=== PATIENT | male | born 1945 | race Caucasian/White ===

== ENCOUNTER 2016-03-08 16:25 | Emergency (ER) | payer MEDICARE ==
[~2016-03-08] VITALS: Wt 88.5 kg
[~2016-03-08 16:25] MED LIST: COUMADIN7.5 MG PO; Coumadin5 MG PO; DARVOCET N 1001 TAB PO; MULTIPLE VITAMI1 CAP PO; PEPCID40 MG PO; PREVACID30 MG PO; SIMVASTATIN20 MG PO; SYNTHROID,LEV150 MCG PO; VITAMIN D-32000 UNI1 PO; ZANTAC150 MG PO
[2016-03-08 17:15] LABS: BASO % 0.4 % (0.0-1.0); EOS # 0.1 10*3/uL (0.0-0.4); EOS % 1.3 % (1.0-4.0); HEMATOCRIT 41.2 % (42.0-52.0); HEMOGLOBIN 14.2 g/dl (14.0-18.0); LYMPH # 0.7 10*3/uL (1.3-4.4); LYMPH % 15.8 % (27.0-41.0); MEAN CELL VOLUME 98.8 fl (80.0-94.0); MEAN CORPUSCULAR HGB 34.1 pg (27.0-31.0); MEAN CORPUSCULAR HGB CONC 34.5 g/dl (33.0-37.0); MEAN PLATELET VOLUME 9.6 fl (9.6-12.3); MONO # 0.6 10*3/uL (0.1-1.0); NEUT # 3.2 10*3/uL (2.3-7.9); NEUT % 69.3 % (47.0-73.0); PLATELET COUNT AUTOMATED 130 10*3/uL (130-400); RED BLOOD COUNT 4.17 10*6/uL (4.50-5.90); RED CELL DISTRI WIDTH 13.9 % (0-14.5); WHITE BLOOD COUNT 4.7 10*3/uL (4.8-10.8)
[2016-03-08 17:24] LABS: INTERNATIONAL NORM RATIO 1.9 (2.0-3.5); PROTHROMBIN TIME 20.4 SECONDS (9.0-12.4)
== END 2016-03-08 17:49 | disposition home or self-care (01) ==
LOC: ED 16:25
PROVIDERS: Physician Assistant
DX: D68.51 Activated protein C resistance (principal); Z79.01 Long term (current) use of anticoagulants; Z88.8 Allergy status to other drugs, medicaments and biological substances; Z90.49 Acquired absence of other specified parts of digestive tract

== ENCOUNTER → 2022-02-11 | Outpatient (CLI) | payer MEDICARE ==
[~2022-02-11] MED LIST changes: +COLACE100 MG PO; +Coumadin10 MG PO; +PREMIERPRO RX ME1 GM IV; +PREVACID15 MG PO; +PROBIOTIC250 MG PO; +SYNTHROID,LEV125 MCG PO; +VANC1PIG IV
== END ==
LOC: WOUNDCARE 00:40
PROVIDERS: ATTEND Nurse Practitioner Family
DX: Z53.21 Procedure and treatment not carried out due to patient leaving prior to being seen by health care provider (principal)

== ENCOUNTER → 2022-03-16 | Outpatient (CLI) | payer MEDICARE ==
[2022-03-16] VITALS (7 sets, daily range): BP systolic 107–130; BP diastolic 52–63
[~2022-03-16] MED LIST changes: +FONDAPARINUX SQ; +LIPITOR10 MG PO; +OMEPRAZOLE MAGN20 MG PO
== END | disposition home or self-care (01) ==
LOC: TRNFUSION 01:09
PROVIDERS: ATTEND Internal Medicine
DX: R79.1 Abnormal coagulation profile (principal); D64.9 Anemia, unspecified

== ENCOUNTER 2022-07-04 19:51 | Emergency (ER) | payer MEDICARE ==
[~2022-07-04] VITALS: Ht 167.6 cm; Wt 52.2 kg
[~2022-07-04 19:51] MED LIST changes: +CIPRO500 MG PO; +ELIQUIS2.5 M1 PO; +ELIQUIS5 M1 PO; +LIPITOR20 MG PO; +NYST SUSP PO; +PROTONIX40 MG PO
[2022-07-04 20:33] LABS: MEAN CELL VOLUME 92.1 fl (80.0-94.0); MEAN CORPUSCULAR HGB 30.4 pg (27.0-31.0); PLATELET COUNT AUTOMATED 175 10*3/uL (130-400); RED BLOOD COUNT 1.91 10*6/uL (4.50-5.90); RED CELL DISTRI WIDTH 13.2 % (0-14.5); WHITE BLOOD COUNT 7.9 10*3/uL (4.8-10.8)
[2022-07-04 20:44] LABS: HEMATOCRIT 17.6 % (42.0-52.0); MANUAL DIFF REFLEX YES
[2022-07-04 20:48] LABS: ACT PARTIAL THROMBO TIME 28.3 SECONDS (20.0-32.1); INTERNATIONAL NORM RATIO 1.1 (2.0-3.5)
[2022-07-04 20:59] LABS: ALKALINE PHOSPHATASE 492 U/L (46-116); BUN 39 mg/dl (9-23); CHLORIDE 109 mmol/L (98-107); POTASSIUM 4.5 mmol/L (3.4-5.1); SGPT/ALT 156 U/L (10-49); TOTAL PROTEIN 5.5 gm/dL (6.0-8.0)
[2022-07-04 21:09] LABS: BASOPHILS 1 % (0-1); PLATELET SUFFICIENCY NORMAL (NORMAL); TOTAL CELLS COUNTED 100 #CELLS
[2022-07-04 22:40] VITALS: BP 107/42
[2022-07-04 22:55] VITALS: BP 93/48
[2022-07-04 23:10] VITALS: BP 94/48
[2022-07-04 23:25] VITALS: BP 103/53
[2022-07-04 23:40] VITALS: BP 107/54
[2022-07-05] VITALS (7 sets, daily range): BP systolic 90–111; BP diastolic 42–57
[2022-07-05 05:31] LABS: INTERNATIONAL NORM RATIO 1.1 (2.0-3.5)
[2022-07-05 05:58] LABS: BASO % 0.4 % (0.0-1.0); EOS # 0.1 10*3/uL (0.0-0.4); EOS % 1.6 % (1.0-4.0); HEMATOCRIT 25.8 % (42.0-52.0); LYMPH # 0.8 10*3/uL (1.3-4.4); LYMPH % 11.1 % (27.0-41.0); MEAN CELL VOLUME 89.6 fl (80.0-94.0); MEAN CORPUSCULAR HGB 30.6 pg (27.0-31.0); MEAN CORPUSCULAR HGB CONC 34.1 g/dl (33.0-37.0); MEAN PLATELET VOLUME 9.5 fl (9.6-12.3); MONO # 0.8 10*3/uL (0.1-1.0); MONO % 10.4 % (3.0-9.0); NEUT # 5.6 10*3/uL (2.3-7.9); NEUT % 74.4 % (47.0-73.0); PLATELET COUNT AUTOMATED 178 10*3/uL (130-400); RED BLOOD COUNT 2.88 10*6/uL (4.50-5.90); RED CELL DISTRI WIDTH 13.7 % (0-14.5); WHITE BLOOD COUNT 7.6 10*3/uL (4.8-10.8)
== END 2022-07-05 07:39 | disposition home or self-care (01) ==
LOC: ED 19:51
PROVIDERS: Emergency Medicine
DX: D64.9 Anemia, unspecified (principal); R73.9 Hyperglycemia, unspecified; E87.8 Other disorders of electrolyte and fluid balance, not elsewhere classified; N18.9 Chronic kidney disease, unspecified; Z86.718 Personal history of other venous thrombosis and embolism; E78.5 Hyperlipidemia, unspecified; E78.00 Pure hypercholesterolemia, unspecified; Z90.49 Acquired absence of other specified parts of digestive tract; Z88.8 Allergy status to other drugs, medicaments and biological substances; Z88.6 Allergy status to analgesic agent; Z98.890 Other specified postprocedural states

== ENCOUNTER 2022-07-23 12:58 | Emergency (ER) | payer MEDICARE ==
[~2022-07-23] VITALS: Wt 59.0 kg
[2022-07-23] VITALS (12 sets, daily range): BP systolic 104–125; BP diastolic 54–64
[2022-07-23 13:40] LABS: MEAN CELL VOLUME 92.6 fl (80.0-94.0); MEAN CORPUSCULAR HGB 29.5 pg (27.0-31.0); MEAN CORPUSCULAR HGB CONC 31.8 g/dl (33.0-37.0); MEAN PLATELET VOLUME 8.9 fl (9.6-12.3); PLATELET COUNT AUTOMATED 188 10*3/uL (130-400); RED BLOOD COUNT 2.17 10*6/uL (4.50-5.90); RED CELL DISTRI WIDTH 13.4 % (0-14.5); WHITE BLOOD COUNT 8.2 10*3/uL (4.8-10.8)
[2022-07-23 13:41] LABS: MANUAL DIFF REFLEX YES
[2022-07-23 13:44] LABS: HEMATOCRIT 20.1 % (42.0-52.0)
[2022-07-23 13:50] LABS: ACT PARTIAL THROMBO TIME 29.9 SECONDS (20.0-32.1); INTERNATIONAL NORM RATIO 1.1 (2.0-3.5)
[2022-07-23 13:58] LABS: BASOPHILS 1 % (0-1); BURR CELLS FEW; OVALOCYTES FEW; PLATELET SUFFICIENCY NORMAL (NORMAL); POLYCHROMASIA SLIGHT; ROULEAUX SLIGHT; TOTAL CELLS COUNTED 100 #CELLS; TOXIC GRANULATION SLIGHT
[2022-07-23 14:03] LABS: ALKALINE PHOSPHATASE 509 U/L (46-116); BUN 38 mg/dl (9-23); CHLORIDE 109 mmol/L (98-107); POTASSIUM 4.3 mmol/L (3.4-5.1); SGPT/ALT 195 U/L (10-49); TOTAL PROTEIN 6.1 gm/dL (6.0-8.0)
== END 2022-07-23 21:36 | disposition home or self-care (01) ==
LOC: ED 12:58
PROVIDERS: Emergency Medicine
DX: D64.9 Anemia, unspecified (principal); E78.00 Pure hypercholesterolemia, unspecified; E03.9 Hypothyroidism, unspecified; Z88.8 Allergy status to other drugs, medicaments and biological substances; Z90.49 Acquired absence of other specified parts of digestive tract; Z98.890 Other specified postprocedural states

== ENCOUNTER 2022-08-13 16:07 | Emergency (ER) | payer MEDICARE ==
[~2022-08-13] VITALS: Wt 62.1 kg
[2022-08-13] VITALS (10 sets, daily range): BP systolic 108–141; BP diastolic 52–69
[2022-08-13 16:49] LABS: BILIRUBIN Negative (Negative); BLOOD Trace-Intact (Negative); CLARITY Clear (Clear); COLOR Yellow (Yellow); GLUCOSE Negative (Negative); KETONE Negative (Negative); LEUKO ESTERASE 2+ (Negative); NITRITE Positive (Negative); PH 5.5 (4.5-8.0); SPECIFIC GRAVITY 1.015 (1.001-1.030); UROBILINOGEN 0.2 E.U./dl (0.0-1.0)
[2022-08-13 16:57] LABS: MEAN CELL VOLUME 94.2 fl (80.0-94.0); MEAN CORPUSCULAR HGB 30.3 pg (27.0-31.0); MEAN CORPUSCULAR HGB CONC 32.1 g/dl (33.0-37.0); MEAN PLATELET VOLUME 9.9 fl (9.6-12.3); PLATELET COUNT AUTOMATED 129 10*3/uL (130-400); RED BLOOD COUNT 2.08 10*6/uL (4.50-5.90); RED CELL DISTRI WIDTH 13.6 % (0-14.5); WHITE BLOOD COUNT 9.3 10*3/uL (4.8-10.8)
[2022-08-13 17:02] LABS: HEMATOCRIT 19.6 % (42.0-52.0); MANUAL DIFF REFLEX YES
[2022-08-13 17:13] LABS: INTERNATIONAL NORM RATIO 1.2 (2.0-3.5)
[2022-08-13 17:22] LABS: ALKALINE PHOSPHATASE 384 U/L (46-116); BUN 40 mg/dl (9-23); CHLORIDE 108 mmol/L (98-107); LIPASE 51 U/L (12-53); POTASSIUM 4.2 mmol/L (3.4-5.1); SGPT/ALT 178 U/L (10-49); TOTAL PROTEIN 5.6 gm/dL (6.0-8.0)
[2022-08-13 17:27] LABS: BASOPHILS 1 % (0-1); TOTAL CELLS COUNTED 100 #CELLS
[2022-08-13 17:28] LABS: PLATELET SUFFICIENCY NORMAL (NORMAL)
[2022-08-13 17:47] LABS: BACTERIA 2+; WBC 21-30 wbc/hpf (0-5)
[2022-08-14] MEDS ORDERED: LEVOFLOXACIN750 M2 PO (01:52)
== END 2022-08-14 02:29 | disposition home or self-care (01) ==
LOC: ED 16:07
PROVIDERS: Emergency Medicine
DX: D53.9 Nutritional anemia, unspecified (principal); N17.9 Acute kidney failure, unspecified; N18.9 Chronic kidney disease, unspecified; R79.82 Elevated C-reactive protein (CRP); R79.89 Other specified abnormal findings of blood chemistry; J18.9 Pneumonia, unspecified organism; E44.0 Moderate protein-calorie malnutrition; Z68.1 Body mass index [BMI] 19.9 or less, adult; E78.00 Pure hypercholesterolemia, unspecified; N39.0 Urinary tract infection, site not specified; Z88.8 Allergy status to other drugs, medicaments and biological substances; Z90.49 Acquired absence of other specified parts of digestive tract; Z98.890 Other specified postprocedural states

== ENCOUNTER 2022-09-01 20:23 | Emergency (ER) | payer MEDICARE ==
[~2022-09-01] VITALS: Ht 185.4 cm; Wt 66.2 kg
[~2022-09-01 20:23] MED LIST changes: +LEVOFLOXACIN750 M2 PO
[2022-09-01 20:52] LABS: MEAN CELL VOLUME 92.1 fl (80.0-94.0); MEAN CORPUSCULAR HGB 28.8 pg (27.0-31.0); MEAN CORPUSCULAR HGB CONC 31.3 g/dl (33.0-37.0); MEAN PLATELET VOLUME 9.2 fl (9.6-12.3); PLATELET COUNT AUTOMATED 145 10*3/uL (130-400); RED BLOOD COUNT 2.15 10*6/uL (4.50-5.90); RED CELL DISTRI WIDTH 14.4 % (0-14.5); WHITE BLOOD COUNT 4.8 10*3/uL (4.8-10.8)
[2022-09-01 21:00] LABS: HEMATOCRIT 19.8 % (42.0-52.0); MANUAL DIFF REFLEX YES
[2022-09-01 21:05] LABS: ACT PARTIAL THROMBO TIME 27.5 SECONDS (20.0-32.1); INTERNATIONAL NORM RATIO 1.1 (2.0-3.5)
[2022-09-01 21:16] LABS: ALKALINE PHOSPHATASE 317 U/L (46-116); BUN 43 mg/dl (9-23); CHLORIDE 110 mmol/L (98-107); POTASSIUM 4.5 mmol/L (3.4-5.1); SGPT/ALT 179 U/L (10-49); TOTAL PROTEIN 5.6 gm/dL (6.0-8.0)
[2022-09-01 21:19] LABS: PLATELET SUFFICIENCY NORMAL (NORMAL); TOTAL CELLS COUNTED 100 #CELLS
[2022-09-01 21:20] LABS: SCHISTOCYTES FEW
[2022-09-02 03:05] VITALS: BP 124/52
[2022-09-02 07:40] VITALS: BP 140/71
[2022-09-02 08:10] VITALS: BP 130/48
[2022-09-02 09:03] VITALS: BP 119/46
[2022-09-02 09:28] VITALS: BP 122/64
== END 2022-09-02 12:11 | disposition left against medical advice (07) ==
LOC: ED 20:23
PROVIDERS: Internal Medicine
DX: D64.9 Anemia, unspecified (principal); Z88.8 Allergy status to other drugs, medicaments and biological substances; Z79.899 Other long term (current) drug therapy; Z90.49 Acquired absence of other specified parts of digestive tract; Z96.642 Presence of left artificial hip joint; Z90.89 Acquired absence of other organs

== ENCOUNTER 2022-09-21 16:46 | Emergency (ER) | payer MEDICARE ==
[~2022-09-21] VITALS: Ht 165.1 cm; Wt 61.4 kg
[2022-09-21] VITALS (10 sets, daily range): BP systolic 85–105; BP diastolic 35–50
[2022-09-21 17:17] LABS: MANUAL DIFF REFLEX YES; MEAN CELL VOLUME 91.9 fl (80.0-94.0); MEAN CORPUSCULAR HGB CONC 31.6 g/dl (33.0-37.0); MEAN PLATELET VOLUME 9.7 fl (9.6-12.3); PLATELET COUNT AUTOMATED 121 10*3/uL (130-400); RED BLOOD COUNT 1.86 10*6/uL (4.50-5.90); RED CELL DISTRI WIDTH 15.1 % (0-14.5); WHITE BLOOD COUNT 7.2 10*3/uL (4.8-10.8)
[2022-09-21 17:25] LABS: HEMATOCRIT 17.1 % (42.0-52.0)
[2022-09-21 17:28] LABS: ACT PARTIAL THROMBO TIME 30.4 SECONDS (20.0-32.1); INTERNATIONAL NORM RATIO 1.2 (2.0-3.5)
[2022-09-21 17:39] LABS: ALKALINE PHOSPHATASE 356 U/L (46-116); BUN 40 mg/dl (9-23); CHLORIDE 109 mmol/L (98-107); LIPASE 39 U/L (12-53); POTASSIUM 3.6 mmol/L (3.4-5.1); SGPT/ALT 237 U/L (10-49); TOTAL PROTEIN 5.3 gm/dL (6.0-8.0)
[2022-09-21 17:42] LABS: BASOPHILS 1 % (0-1); PLATELET SUFFICIENCY LOW (NORMAL); TOTAL CELLS COUNTED 100 #CELLS
[2022-09-21 17:43] LABS: POLYCHROMASIA SLIGHT
[2022-09-21 17:44] LABS: BURR CELLS FEW
[2022-09-22 04:50] VITALS: BP 98/50
[2022-09-22 05:05] VITALS: BP 115/46
[2022-09-22 05:20] VITALS: BP 114/48
[2022-09-22 05:35] VITALS: BP 112/49
[2022-09-22 06:35] VITALS: BP 100/49
[2022-09-22 07:29] VITALS: BP 117/60
== END 2022-09-22 09:01 | disposition left against medical advice (07) ==
LOC: ED 16:46
PROVIDERS: Emergency Medicine
DX: D64.9 Anemia, unspecified (principal); I95.9 Hypotension, unspecified; E78.00 Pure hypercholesterolemia, unspecified; Z88.8 Allergy status to other drugs, medicaments and biological substances; Z90.49 Acquired absence of other specified parts of digestive tract; Z98.890 Other specified postprocedural states

== ENCOUNTER 2022-10-16 11:42 | Emergency (ER) | payer MEDICARE ==
[~2022-10-16] VITALS: Wt 57.2 kg
[2022-10-16 12:12] LABS: MEAN CELL VOLUME 89.5 fl (80.0-94.0); MEAN CORPUSCULAR HGB 28.8 pg (27.0-31.0); MEAN CORPUSCULAR HGB CONC 32.2 g/dl (33.0-37.0); MEAN PLATELET VOLUME 9.6 fl (9.6-12.3); PLATELET COUNT AUTOMATED 164 10*3/uL (130-400); RED BLOOD COUNT 2.29 10*6/uL (4.50-5.90); RED CELL DISTRI WIDTH 14.3 % (0-14.5); WHITE BLOOD COUNT 16.9 10*3/uL (4.8-10.8)
[2022-10-16 12:16] LABS: HEMATOCRIT 20.5 % (42.0-52.0); MANUAL DIFF REFLEX YES
[2022-10-16 12:42] LABS: BASOPHILS 1 % (0-1); PLATELET SUFFICIENCY NORMAL (NORMAL); TOTAL CELLS COUNTED 100 #CELLS
[2022-10-16 12:43] LABS: ALKALINE PHOSPHATASE 396 U/L (46-116); BUN 47 mg/dl (9-23); CHLORIDE 116 mmol/L (98-107); SGPT/ALT 142 U/L (10-49); TOTAL PROTEIN 5.7 gm/dL (6.0-8.0)
[2022-10-16 15:45] VITALS: BP 105/40
[2022-10-16 16:00] VITALS: BP 105/40
[2022-10-16 16:15] VITALS: BP 92/38
[2022-10-16 16:30] VITALS: BP 105/58
[2022-10-16 17:00] VITALS: BP 105/47
[2022-10-16 17:30] VITALS: BP 101/49
[2022-10-16 17:45] LABS: HEMATOCRIT 23.9 % (42.0-52.0); MANUAL DIFF REFLEX YES; MEAN CELL VOLUME 89.5 fl (80.0-94.0); MEAN CORPUSCULAR HGB CONC 33.5 g/dl (33.0-37.0); MEAN PLATELET VOLUME 10.1 fl (9.6-12.3); PLATELET COUNT AUTOMATED 143 10*3/uL (130-400); RED BLOOD COUNT 2.67 10*6/uL (4.50-5.90); RED CELL DISTRI WIDTH 14.3 % (0-14.5); WHITE BLOOD COUNT 14.9 10*3/uL (4.8-10.8)
[2022-10-16 18:15] LABS: OVALOCYTES FEW; PLATELET SUFFICIENCY NORMAL (NORMAL); TOTAL CELLS COUNTED 100 #CELLS
== END 2022-10-16 18:58 | disposition home or self-care (01) ==
LOC: ED 11:42
PROVIDERS: Internal Medicine
DX: D64.9 Anemia, unspecified (principal); Z88.8 Allergy status to other drugs, medicaments and biological substances; Z90.49 Acquired absence of other specified parts of digestive tract; Z98.890 Other specified postprocedural states; E78.00 Pure hypercholesterolemia, unspecified

== ENCOUNTER 2022-10-26 11:45 | Inpatient (IN) | payer MEDICARE ==
[~2022-10-26] VITALS: Ht 177.8 cm; Wt 61.2 kg
[2022-10-26] VITALS (31 sets, daily range): BP systolic 86–133; BP diastolic 41–64
[2022-10-26 12:15] LABS: VENOUS PH 7.369 (7.37-7.45)
[2022-10-26 12:16] LABS: HEMATOCRIT 21.1 % (42.0-52.0); MEAN CELL VOLUME 95.9 fl (80.0-94.0); MEAN CORPUSCULAR HGB 27.7 pg (27.0-31.0); MEAN CORPUSCULAR HGB CONC 28.9 g/dl (33.0-37.0); MEAN PLATELET VOLUME 10.9 fl (9.6-12.3); PLATELET COUNT AUTOMATED 152 10*3/uL (130-400); RED CELL DISTRI WIDTH 15.1 % (0-14.5); WHITE BLOOD COUNT 20.6 10*3/uL (4.8-10.8)
[2022-10-26 12:17] LABS: MANUAL DIFF REFLEX YES
[2022-10-26 12:27] LABS: ACT PARTIAL THROMBO TIME 32.2 SECONDS (20.0-32.1); INTERNATIONAL NORM RATIO 1.5 (2.0-3.5)
[2022-10-26 12:36] LABS: PLATELET SUFFICIENCY NORMAL (NORMAL); POLYCHROMASIA SLIGHT; TOTAL CELLS COUNTED 100 #CELLS
[2022-10-26 12:38] LABS: ALKALINE PHOSPHATASE 569 U/L (46-116); BUN 69 mg/dl (9-23); POTASSIUM 3.6 mmol/L (3.4-5.1); SGPT/ALT 233 U/L (10-49); TOTAL PROTEIN 5.2 gm/dL (6.0-8.0)
[2022-10-26 12:47] LABS: CHLORIDE 133 mmol/L (98-107)
[2022-10-26 15:59] LABS: ABG BASE EXCESS 4.4 mmol/L (-2.0-2.0); ARTERIAL BLOOD GAS PH 7.483 (7.35-7.45); ARTERIAL BLOOD GAS PO2 458.9 (80-90)
[2022-10-26 16:36] LABS: BUN 70 mg/dl (9-23)
[2022-10-26 16:41] LABS: CHLORIDE 133 mmol/L (98-107)
[2022-10-26 18:34] LABS: BUN 65 mg/dl (9-23); POTASSIUM 3.1 mmol/L (3.4-5.1)
[2022-10-26 18:40] LABS: CHLORIDE 133 mmol/L (98-107)
[2022-10-26 21:22] LABS: ABG BASE EXCESS 0.8 mmol/L (-2.0-2.0); ARTERIAL BLOOD GAS PH 7.361 (7.35-7.45); ARTERIAL BLOOD GAS PO2 163.2 (80-90)
[2022-10-26 21:52] LABS: BILIRUBIN Negative (Negative); BLOOD Negative (Negative); CLARITY Clear (Clear); COLOR Yellow (Yellow); GLUCOSE Negative (Negative); KETONE Negative (Negative); LEUKO ESTERASE 1+ (Negative); NITRITE Negative (Negative); UROBILINOGEN 0.2 E.U./dl (0.0-1.0)
[2022-10-26 21:59] LABS: BACTERIA 1+; RBC 0-2 rbc/hpf (0-2); WBC 16-20 wbc/hpf (0-5)
[2022-10-26 22:16] LABS: BUN 64 mg/dl (9-23); POTASSIUM 3.3 mmol/L (3.4-5.1)
[2022-10-26 22:23] LABS: CHLORIDE 132 mmol/L (98-107)
[2022-10-27] VITALS (98 sets, daily range): BP systolic 78–144; BP diastolic 45–72
[2022-10-27 01:07] LABS: BUN 63 mg/dl (9-23); POTASSIUM 2.9 mmol/L (3.4-5.1)
[2022-10-27 01:10] LABS: CHLORIDE 128 mmol/L (98-107)
[2022-10-27 04:06] LABS: BUN 61 mg/dl (9-23); POTASSIUM 3.3 mmol/L (3.4-5.1)
[2022-10-27 04:11] LABS: CHLORIDE 127 mmol/L (98-107)
[2022-10-27 06:27] LABS: HEMATOCRIT 24.9 % (42.0-52.0); MEAN CELL VOLUME 92.9 fl (80.0-94.0); MEAN CORPUSCULAR HGB 29.9 pg (27.0-31.0); MEAN CORPUSCULAR HGB CONC 32.1 g/dl (33.0-37.0); MEAN PLATELET VOLUME 11.1 fl (9.6-12.3); PLATELET COUNT AUTOMATED 112 10*3/uL (130-400); RED BLOOD COUNT 2.68 10*6/uL (4.50-5.90); RED CELL DISTRI WIDTH 14.8 % (0-14.5); WHITE BLOOD COUNT 17.1 10*3/uL (4.8-10.8)
[2022-10-27 06:29] LABS: MANUAL DIFF REFLEX YES
[2022-10-27 06:34] LABS: ALKALINE PHOSPHATASE 441 U/L (46-116); BUN 59 mg/dl (9-23); CHOLESTEROL 80 mg/dL (<200); FREE T4 0.98 ng/dl (0.89-1.76); POTASSIUM 3.6 mmol/L (3.4-5.1); SGPT/ALT 173 U/L (10-49); TOTAL PROTEIN 4.3 gm/dL (6.0-8.0); TRIGLYCERIDES 175 mg/dl (<150)
[2022-10-27 06:37] LABS: CHLORIDE 126 mmol/L (98-107)
[2022-10-27 06:38] LABS: LDL CHOLESTEROL 34 mg/dL (9-159)
[2022-10-27 07:09] LABS: PLATELET SUFFICIENCY LOW (NORMAL); POLYCHROMASIA SLIGHT; TOTAL CELLS COUNTED 100 #CELLS; TOXIC GRANULATION SLIGHT
[2022-10-27 07:10] LABS: BURR CELLS FEW; VACUOLATION OF NEUTROPHILS SLIGHT
[2022-10-27 07:33] LABS: VITAMIN D, 25-HYDROXY 40.4 ng/mL (30-100)
[2022-10-27 08:13] LABS: ABG BASE EXCESS -1.6 mmol/L (-2.0-2.0); ARTERIAL BLOOD GAS PH 7.318 (7.35-7.45); ARTERIAL BLOOD GAS PO2 185.1 (80-90)
[2022-10-27 10:13] LABS: BUN 55 mg/dl (9-23); CHLORIDE 126 mmol/L (98-107); POTASSIUM 3.2 mmol/L (3.4-5.1)
[2022-10-27 13:05] LABS: BUN 55 mg/dl (9-23); CHLORIDE 126 mmol/L (98-107); POTASSIUM 3.2 mmol/L (3.4-5.1)
[2022-10-27 18:54] LABS: BUN 51 mg/dl (9-23); CHLORIDE 126 mmol/L (98-107)
[2022-10-27 19:07] LABS: POTASSIUM 4.2 mmol/L (3.4-5.1)
[2022-10-28] VITALS (82 sets, daily range): BP systolic 87–122; BP diastolic 32–61
[2022-10-28 00:43] LABS: BUN 49 mg/dl (9-23); CHLORIDE 126 mmol/L (98-107); POTASSIUM 4.4 mmol/L (3.4-5.1)
[2022-10-28 05:56] LABS: HEMATOCRIT 24.8 % (42.0-52.0); MEAN CELL VOLUME 90.2 fl (80.0-94.0); MEAN CORPUSCULAR HGB 29.5 pg (27.0-31.0); MEAN CORPUSCULAR HGB CONC 32.7 g/dl (33.0-37.0); MEAN PLATELET VOLUME 11.1 fl (9.6-12.3); PLATELET COUNT AUTOMATED 112 10*3/uL (130-400); RED BLOOD COUNT 2.75 10*6/uL (4.50-5.90); RED CELL DISTRI WIDTH 15.4 % (0-14.5)
[2022-10-28 06:00] LABS: BUN 50 mg/dl (9-23); CHLORIDE 125 mmol/L (98-107); POTASSIUM 4.6 mmol/L (3.4-5.1)
[2022-10-28 06:11] LABS: MANUAL DIFF REFLEX YES
[2022-10-28 07:10] LABS: PLATELET SUFFICIENCY LOW (NORMAL); TOTAL CELLS COUNTED 100 #CELLS
[2022-10-28 09:33] LABS: ABG BASE EXCESS -1.5 mmol/L (-2.0-2.0); ARTERIAL BLOOD GAS PH 7.395 (7.35-7.45); ARTERIAL BLOOD GAS PO2 111.9 (80-90)
[2022-10-28 12:01] LABS: BUN 47 mg/dl (9-23); CHLORIDE 124 mmol/L (98-107); POTASSIUM 4.5 mmol/L (3.4-5.1)
[2022-10-29] VITALS (93 sets, daily range): BP systolic 90–120; BP diastolic 38–64
[2022-10-29 05:54] LABS: ALKALINE PHOSPHATASE 449 U/L (46-116); BUN 43 mg/dl (9-23); CHLORIDE 120 mmol/L (98-107); SGPT/ALT 141 U/L (10-49); TOTAL PROTEIN 4.2 gm/dL (6.0-8.0)
[2022-10-29 06:16] LABS: HEMATOCRIT 23.3 % (42.0-52.0); MEAN CELL VOLUME 92.8 fl (80.0-94.0); MEAN CORPUSCULAR HGB 29.5 pg (27.0-31.0); MEAN CORPUSCULAR HGB CONC 31.8 g/dl (33.0-37.0); MEAN PLATELET VOLUME 11.5 fl (9.6-12.3); PLATELET COUNT AUTOMATED 95 10*3/uL (130-400); RED BLOOD COUNT 2.51 10*6/uL (4.50-5.90); RED CELL DISTRI WIDTH 15.9 % (0-14.5); WHITE BLOOD COUNT 14.4 10*3/uL (4.8-10.8)
[2022-10-29 07:15] LABS: MANUAL DIFF REFLEX YES
[2022-10-29 07:18] LABS: TOTAL CELLS COUNTED 100 #CELLS
[2022-10-29 07:19] LABS: PLATELET SUFFICIENCY LOW (NORMAL); TARGET CELLS FEW
[2022-10-29 08:51] LABS: ABG BASE EXCESS -5.4 mmol/L (-2.0-2.0); ARTERIAL BLOOD GAS PH 7.37 (7.35-7.45); ARTERIAL BLOOD GAS PO2 103.2 (80-90)
[2022-10-30] VITALS (98 sets, daily range): BP systolic 78–126; BP diastolic 41–82
[2022-10-30 05:30] LABS: CHLORIDE 118 mmol/L (98-107); POTASSIUM 3.6 mmol/L (3.4-5.1)
[2022-10-30 05:32] LABS: BUN 33 mg/dl (9-23)
[2022-10-30 06:12] LABS: MANUAL DIFF REFLEX YES; MEAN CELL VOLUME 90.3 fl (80.0-94.0); MEAN CORPUSCULAR HGB 29.6 pg (27.0-31.0); MEAN CORPUSCULAR HGB CONC 32.8 g/dl (33.0-37.0); MEAN PLATELET VOLUME 11.3 fl (9.6-12.3); PLATELET COUNT AUTOMATED 68 10*3/uL (130-400); RED BLOOD COUNT 2.26 10*6/uL (4.50-5.90); RED CELL DISTRI WIDTH 15.9 % (0-14.5); WHITE BLOOD COUNT 11.6 10*3/uL (4.8-10.8)
[2022-10-30 06:14] LABS: HEMATOCRIT 20.4 % (42.0-52.0)
[2022-10-30 06:47] LABS: BURR CELLS MODERATE; OVALOCYTES FEW; POLYCHROMASIA SLIGHT; TOTAL CELLS COUNTED 100 #CELLS; TOXIC GRANULATION MODERATE
[2022-10-30 06:48] LABS: PLATELET SUFFICIENCY LOW (NORMAL); TARGET CELLS FEW
[2022-10-30 17:32] LABS: HEMATOCRIT 22.9 % (42.0-52.0); MEAN CELL VOLUME 89.5 fl (80.0-94.0); MEAN CORPUSCULAR HGB 29.7 pg (27.0-31.0); MEAN CORPUSCULAR HGB CONC 33.2 g/dl (33.0-37.0); PLATELET COUNT AUTOMATED 69 10*3/uL (130-400); RED BLOOD COUNT 2.56 10*6/uL (4.50-5.90); RED CELL DISTRI WIDTH 15.8 % (0-14.5); WHITE BLOOD COUNT 8.6 10*3/uL (4.8-10.8)
[2022-10-30 17:37] LABS: MANUAL DIFF REFLEX YES
[2022-10-30 17:54] LABS: PLATELET SUFFICIENCY LOW (NORMAL); TOTAL CELLS COUNTED 100 #CELLS
[2022-10-30 17:55] LABS: POLYCHROMASIA SLIGHT
[2022-10-30 17:56] LABS: BURR CELLS MODERATE; OVALOCYTES FEW; TARGET CELLS FEW
[2022-10-30 17:57] LABS: TOXIC GRANULATION SLIGHT
[2022-10-31] VITALS (91 sets, daily range): BP systolic 90–124; BP diastolic 38–74
[2022-10-31 06:38] LABS: HEMATOCRIT 23.3 % (42.0-52.0); MEAN CORPUSCULAR HGB 29.3 pg (27.0-31.0); MEAN CORPUSCULAR HGB CONC 32.2 g/dl (33.0-37.0); PLATELET COUNT AUTOMATED 58 10*3/uL (130-400); RED BLOOD COUNT 2.56 10*6/uL (4.50-5.90); RED CELL DISTRI WIDTH 16.1 % (0-14.5); WHITE BLOOD COUNT 7.3 10*3/uL (4.8-10.8)
[2022-10-31 06:52] LABS: MANUAL DIFF REFLEX YES
[2022-10-31 07:00] LABS: CHLORIDE 121 mmol/L (98-107); POTASSIUM 3.4 mmol/L (3.4-5.1)
[2022-10-31 07:01] LABS: BUN 22 mg/dl (9-23)
[2022-10-31 07:25] LABS: BASOPHILS 1 % (0-1); BURR CELLS MODERATE; OVALOCYTES FEW; PLATELET SUFFICIENCY LOW (NORMAL); POLYCHROMASIA SLIGHT; ROULEAUX SLIGHT; SCHISTOCYTES FEW; TOTAL CELLS COUNTED 100 #CELLS
[2022-10-31 07:26] LABS: TARGET CELLS FEW
[2022-11-01] VITALS (73 sets, daily range): BP systolic 90–129; BP diastolic 29–67
[2022-11-01 06:02] LABS: MEAN CORPUSCULAR HGB 29.3 pg (27.0-31.0); MEAN CORPUSCULAR HGB CONC 32.1 g/dl (33.0-37.0); MEAN PLATELET VOLUME 11.8 fl (9.6-12.3); PLATELET COUNT AUTOMATED 64 10*3/uL (130-400); RED BLOOD COUNT 2.15 10*6/uL (4.50-5.90); RED CELL DISTRI WIDTH 16.3 % (0-14.5); WHITE BLOOD COUNT 9.8 10*3/uL (4.8-10.8)
[2022-11-01 06:31] LABS: MANUAL DIFF REFLEX YES; MEAN CELL VOLUME 91.2 fl (80.0-94.0)
[2022-11-01 07:02] LABS: ALKALINE PHOSPHATASE 669 U/L (46-116); BUN 26 mg/dl (9-23); CHLORIDE 119 mmol/L (98-107); POTASSIUM 3.3 mmol/L (3.4-5.1); SGPT/ALT 142 U/L (10-49); TOTAL PROTEIN 4.3 gm/dL (6.0-8.0)
[2022-11-01 07:26] LABS: TOTAL CELLS COUNTED 100 #CELLS
[2022-11-01 07:29] LABS: PLATELET SUFFICIENCY LOW (NORMAL); POLYCHROMASIA SLIGHT
[2022-11-01 08:06] LABS: HEMATOCRIT 19.6 % (42.0-52.0)
== END 2022-11-01 17:00 | disposition short-term general hospital (02) | DRG 207 ==
LOC: ED 11:45 → EDHOLD 14:35 → ICCU 14:35 → EDHOLD 15:43 → ICCU 16:54
PROVIDERS: Internal Medicine Critical Care Medicine; Nurse Practitioner; Student in an Organized Health Care Education/Training Program; ADMIT Student in an Organized Health Care Education/Training Program; ATTEND Student in an Organized Health Care Education/Training Program
PROC: 5A1955Z Respiratory Ventilation, Greater than 96 Consecutive Hours (ICD-10-PCS; principal; 2022-10-26)
PROC: 0BH17EZ Insertion of Endotracheal Airway into Trachea, Via Natural or Artificial Opening (ICD-10-PCS; 2022-10-26)
PROC: 02HV33Z Insertion of Infusion Device into Superior Vena Cava, Percutaneous Approach (ICD-10-PCS; 2022-10-26)
PROC: B548ZZA Ultrasonography of Superior Vena Cava, Guidance (ICD-10-PCS; 2022-10-26)
PROC: 30233N1 Transfusion of Nonautologous Red Blood Cells into Peripheral Vein, Percutaneous Approach (ICD-10-PCS; 2022-10-26)
DX: J69.0 Pneumonitis due to inhalation of food and vomit (principal); J96.01 Acute respiratory failure with hypoxia; L89.323 Pressure ulcer of left buttock, stage 3; E43 Unspecified severe protein-calorie malnutrition; L89.214 Pressure ulcer of right hip, stage 4; L89.894 Pressure ulcer of other site, stage 4; L89.154 Pressure ulcer of sacral region, stage 4; G93.41 Metabolic encephalopathy; L89.624 Pressure ulcer of left heel, stage 4; E87.0 Hyperosmolality and hypernatremia; G93.40 Encephalopathy, unspecified; D68.51 Activated protein C resistance; Z68.1 Body mass index [BMI] 19.9 or less, adult; E87.3 Alkalosis; E72.20 Disorder of urea cycle metabolism, unspecified; M46.28 Osteomyelitis of vertebra, sacral and sacrococcygeal region; Z16.12 Extended spectrum beta lactamase (ESBL) resistance; G51.0 Bell's palsy; N18.9 Chronic kidney disease, unspecified; E87.8 Other disorders of electrolyte and fluid balance, not elsewhere classified; R73.9 Hyperglycemia, unspecified; E87.6 Hypokalemia; D72.829 Elevated white blood cell count, unspecified; E83.41 Hypermagnesemia; D63.8 Anemia in other chronic diseases classified elsewhere; B95.62 Methicillin resistant Staphylococcus aureus infection as the cause of diseases classified elsewhere; E78.5 Hyperlipidemia, unspecified; B95.4 Other streptococcus as the cause of diseases classified elsewhere; B96.4 Proteus (mirabilis) (morganii) as the cause of diseases classified elsewhere; S41.112A Laceration without foreign body of left upper arm, initial encounter; L89.612 Pressure ulcer of right heel, stage 2; B96.89 Other specified bacterial agents as the cause of diseases classified elsewhere; S51.012A Laceration without foreign body of left elbow, initial encounter; S61.411A Laceration without foreign body of right hand, initial encounter; L89.890 Pressure ulcer of other site, unstageable; R74.01 Elevation of levels of liver transaminase levels; F09 Unspecified mental disorder due to known physiological condition; K80.20 Calculus of gallbladder without cholecystitis without obstruction; L89.310 Pressure ulcer of right buttock, unstageable; M25.452 Effusion, left hip; E89.0 Postprocedural hypothyroidism; Z96.642 Presence of left artificial hip joint; I95.9 Hypotension, unspecified; Z88.8 Allergy status to other drugs, medicaments and biological substances; Z79.01 Long term (current) use of anticoagulants; Z79.899 Other long term (current) drug therapy; Z90.49 Acquired absence of other specified parts of digestive tract; Z82.49 Family history of ischemic heart disease and other diseases of the circulatory system; Z80.6 Family history of leukemia; Z86.73 Personal history of transient ischemic attack (TIA), and cerebral infarction without residual deficits; Z85.6 Personal history of leukemia; Z85.850 Personal history of malignant neoplasm of thyroid; Z86.16 Personal history of COVID-19; Z87.01 Personal history of pneumonia (recurrent); Z87.440 Personal history of urinary (tract) infections; Y93.89 Activity, other specified; Y92.89 Other specified places as the place of occurrence of the external cause; Y99.8 Other external cause status